=== PATIENT | female | born 1995 | race African-American/Black ===

== ENCOUNTER 2021-01-24 15:36 | Emergency (ER) | payer MEDICAID ==
[~2021-01-24] VITALS: Ht 162.6 cm; Wt 54.5 kg
[2021-01-24 16:21] VITALS: BP 131/79
[2021-01-24] MEDS ORDERED: ACETAMINOPHEN 325 MG TABLET PO ONE (16:30)
== END 2021-01-24 17:13 | disposition home or self-care (01) ==
LOC: EMS 15:36
DX: S46.811A Strain of other muscles, fascia and tendons at shoulder and upper arm level, right arm, initial encounter (principal); Y08.89XA Assault by other specified means, initial encounter; Y93.89 Activity, other specified; Y92.89 Other specified places as the place of occurrence of the external cause; Y99.8 Other external cause status
CPT/HCPCS: 99283

== ENCOUNTER 2023-02-16 05:38 | Inpatient (IN) | payer MEDICAID ==
[~2023-02-16] VITALS: Ht 152.4 cm; Wt 55.0 kg
[2023-02-16 07:48] LABS: BASOPHILS % (AUTO) 1.2 % (0.0-2.0); EOSINOPHILS % (AUTO) 1.1 % (1.0-6.0); HEMATOCRIT 29.5 % (36-46); HEMOGLOBIN 9.5 g/dL (12.0-16.0); LYMPHOCYTES # (AUTO) 2.7 K/uL (1.0-4.8); MEAN CORPUSCULAR HEMOGLOBIN 28.1 pg (26.0-34.0); MEAN CORPUSCULAR HGB CONC 32.2 G/dL (31.0-37.0); MEAN CORPUSCULAR VOLUME 87 fL (80-100); MONOCYTES # (AUTO) 0.5 K/uL (0.1-1.0); MONOCYTES % (AUTO) 8.1 % (2.0-9.0); NEUTROPHILS # (AUTO) 2.4 K/uL (1.8-7.7); NEUTROPHILS % (AUTO) 42.6 % (40.0-70.0); PLATELET COUNT (AUTO) 294 K/uL (150-450); RED BLOOD CELL COUNT(AUTO) 3.38 MIL/uL (4.00-5.20); RED CELL DISTRIBUTION WIDTH 16.6 % (11.5-14.5)
[2023-02-16] MEDS ORDERED: HALOPERIDOL LACTATE 5 MG/ML VIAL IM ONE (08:00)
[2023-02-16] MEDS ORDERED: LORazepam 2 MG/ML VIAL IM ONE (08:00)
[2023-02-16] MEDS ORDERED: DiphenhydrAMINE HCL 50 MG/ML VIAL IM ONE (08:00)
[2023-02-16 08:05] LABS: ANION GAP 11 mmol/L (8-16); CALCIUM, TOTAL 8.3 mg/dL (8.8-10.5); CARBON DIOXIDE 22 mmol/L (22-29); CHLORIDE 107 mmol/L (98-107); CREATININE 0.78 mg/dL (0.60-1.30); GLOMERULAR FILTR. RATE CALC > 60 mL/min (>60); GLUCOSE,RANDOM 88 mg/dL (70-110); POTASSIUM 3.4 mmol/L (3.5-5.1); SODIUM SERUM 140 mmol/L (136-145)
[2023-02-16 08:10] LABS: ALANINE AMINOTRANSFERASE 24 U/L (12-78); ALBUMIN 3.6 g/dL (3.4-5.0); ALKALINE PHOSPHATASE 40 U/L (46-116); ASPARTATE AMINOTRANSFERASE 36 U/L (15-37); BILIRUBIN,TOTAL 0.3 mg/dL (0.1-1.0)
[2023-02-16] MEDS ORDERED: ZOLPIDEM TARTRATE 10 MG TABLET PO PRN (09:45)
[2023-02-16 14:21] LABS: COVID AG,FIA SOURCE NASAL SWAB
[2023-02-16 18:53] VITALS: BP 113/51; PULSE 57; RESP 18; TEMP 98.4; O2SAT 100
[2023-02-16 21:16] VITALS: BP 104/56; PULSE 60; RESP 17; TEMP 97.2; O2SAT 98
[2023-02-17] MEDS ORDERED: BENZOCAINE/MENTHOL LOZENGE PO PRN (08:30)
[2023-02-17] MEDS ORDERED: DOCUSATE SODIUM 100 MG CAPSULE PO PRN (08:30)
[2023-02-17] MEDS ORDERED: ONDANSETRON HCL 4 MG TABLET PO PRN (08:30)
[2023-02-17] MEDS ORDERED: PETROLATUM,WHITE 28 GM JELLY TP PRN (08:30)
[2023-02-17] MEDS ORDERED: ALBUTEROL SULFATE HFA 90 MCG/PUFF 8 GM INHALER IH PRN (08:30)
[2023-02-17] MEDS ORDERED: MAGNESIUM HYDROXIDE SUSPENSION 30 ML UDCUP PO PRN (08:30)
[2023-02-17] MEDS ORDERED: CloNIDine HCL 0.1 MG TABLET PO PRN (08:30)
[2023-02-17] MEDS ORDERED: LOPERAMIDE HCL 2 MG CAPSULE PO PRN (08:30)
[2023-02-17] MEDS ORDERED: ACETAMINOPHEN 325 MG TABLET PO PRN (08:30)
[2023-02-17] MEDS ORDERED: OMEPRAZOLE 20 MG CAPSULE PO PRN (08:30)
[2023-02-17] MEDS ORDERED: MAG HYDROX/AL HYDROX/SIMETH ES 30 ML SUSPENSION UDCUP PO PRN (08:30)
[2023-02-17] MEDS ORDERED: POTASSIUM CHLORIDE 20 MEQ ER TABLET PO ONE (08:30)
[2023-02-17] MEDS ORDERED: BACITRACIN 28 GM OINTMENT TP PRN (08:30)
[2023-02-17 09:40] VITALS: BP 106/60; PULSE 60; RESP 20; TEMP 98.5; O2SAT 96
[2023-02-17] MEDS: HALOPERIDOL 5 MG TABLET PO PRN (12:55)
[2023-02-17] MEDS: LORazepam 2 MG TABLET PO PRN ×2 (12:55→20:26)
[2023-02-17] MEDS: QUEtiapine FUMARATE 300 MG TABLET PO SCH (20:26)
[2023-02-17 20:35] VITALS: BP 119/65; PULSE 95; RESP 18; TEMP 97.6; O2SAT 98
[2023-02-18 09:51] VITALS: BP 118/68; PULSE 80; RESP 18; TEMP 98; O2SAT 99
[2023-02-18] MEDS: LORazepam 2 MG TABLET PO PRN ×2 (14:00→20:11)
[2023-02-18] MEDS: HALOPERIDOL 5 MG TABLET PO PRN (14:00)
[2023-02-18] MEDS: QUEtiapine FUMARATE 300 MG TABLET PO SCH (20:10)
[2023-02-19 02:17] VITALS: BP 136/84; PULSE 96; RESP 18; TEMP 97.4
[2023-02-19] MEDS: LORazepam 2 MG TABLET PO PRN ×2 (08:32→14:36)
[2023-02-19 08:38] VITALS: BP 116/72; PULSE 94; RESP 16; TEMP 97.6; O2SAT 99
[2023-02-19] MEDS: HALOPERIDOL 5 MG TABLET PO PRN (15:48)
[2023-02-19 20:07] VITALS: BP 112/63; PULSE 98; RESP 18; TEMP 97.5; O2SAT 96
[2023-02-19] MEDS: QUEtiapine FUMARATE 300 MG TABLET PO SCH (20:29)
[2023-02-19] MEDS ORDERED: QUEtiapine FUMARATE 300 MG TABLET PO SCH (21:00)
[2023-02-20] VITALS: BP 111/65; PULSE 99; RESP 18; TEMP 97.6; O2SAT 100
[2023-02-20] MEDS: LORazepam 2 MG TABLET PO PRN ×2 (00:02→08:13)
[2023-02-20] MEDS: HALOPERIDOL 5 MG TABLET PO PRN (08:13)
[2023-02-20 08:24] VITALS: BP 112/79; PULSE 96; RESP 16; TEMP 97.9; O2SAT 99
[2023-02-20 20:08] VITALS: BP 109/68; PULSE 83; RESP 18; TEMP 97.5; O2SAT 96
[2023-02-20] MEDS: QUEtiapine FUMARATE 300 MG TABLET PO SCH (20:30)
[2023-02-21] MEDS ORDERED: LORazepam 2 MG/ML VIAL IM ONE (06:45)
[2023-02-21] MEDS ORDERED: DiphenhydrAMINE HCL 50 MG/ML VIAL IM ONE (06:45)
[2023-02-21] MEDS ORDERED: HALOPERIDOL LACTATE 5 MG/ML VIAL IM ONE (06:45)
[2023-02-21 08:27] VITALS: RESP 16
[2023-02-21] MEDS: HALOPERIDOL 5 MG TABLET PO PRN ×2 (08:36→16:06)
[2023-02-21] MEDS: IBUPROFEN 600 MG TABLET PO PRN (08:36)
[2023-02-21] MEDS: LORazepam 2 MG TABLET PO PRN ×3 (08:36→20:16)
[2023-02-21] MEDS: QUEtiapine FUMARATE 300 MG TABLET PO SCH (20:16)
[2023-02-21 20:29] VITALS: BP 115/72; PULSE 98; RESP 17; TEMP 98; O2SAT 98
[2023-02-22] MEDS: HALOPERIDOL 5 MG TABLET PO PRN ×3 (04:19→16:16)
[2023-02-22] MEDS: LORazepam 2 MG TABLET PO PRN ×3 (04:19→16:16)
[2023-02-22 08:33] VITALS: RESP 18
[2023-02-22 20:13] VITALS: BP 109/65; PULSE 73; RESP 19; TEMP 98.3; O2SAT 99
[2023-02-22] MEDS: QUEtiapine FUMARATE 300 MG TABLET PO SCH (20:34)
[2023-02-23] MEDS ORDERED: LORazepam 2 MG/ML VIAL ONE (02:29)
[2023-02-23] MEDS ORDERED: HALOPERIDOL LACTATE 5 MG/ML VIAL IM ONE (02:30)
[2023-02-23] MEDS ORDERED: DiphenhydrAMINE HCL 50 MG/ML VIAL ONE (02:30)
[2023-02-23] MEDS ORDERED: LORazepam 2 MG/ML VIAL IM ONE (02:30)
[2023-02-23] MEDS ORDERED: HALOPERIDOL LACTATE 5 MG/ML VIAL ONE (02:30)
[2023-02-23] MEDS ORDERED: DiphenhydrAMINE HCL 50 MG/ML VIAL IM ONE (02:30)
[2023-02-23 08:23] VITALS: BP 115/62; PULSE 111; RESP 17; TEMP 98.1; O2SAT 98
[2023-02-23] MEDS: LORazepam 2 MG TABLET PO PRN (09:11)
[2023-02-23] MEDS: HALOPERIDOL 5 MG TABLET PO PRN (09:11)
[2023-02-23] MEDS: IBUPROFEN 600 MG TABLET PO PRN (11:54)
[2023-02-23] MEDS ORDERED: QUET300T2 PO (15:48)
== END 2023-02-23 19:38 | disposition home or self-care (01) | DRG 750 ==
LOC: EMS 05:39 → B3A 15:41
PROVIDERS: ADMIT Psychiatry & Neurology Psychiatry; ATTEND Psychiatry & Neurology Psychiatry
DX: F25.9 Schizoaffective disorder, unspecified (principal); R45.850 Homicidal ideations; F41.9 Anxiety disorder, unspecified; G47.00 Insomnia, unspecified; I10 Essential (primary) hypertension; K59.00 Constipation, unspecified; F10.90 Alcohol use, unspecified, uncomplicated; Y90.9 Presence of alcohol in blood, level not specified; J45.909 Unspecified asthma, uncomplicated; Z20.822 Contact with and (suspected) exposure to COVID-19; Z78.1 Physical restraint status; Z72.0 Tobacco use; Z71.6 Tobacco abuse counseling
CPT/HCPCS: 80053; 84132; 85025; 99285; G0480; J1200; J1630; J2060; 36415-L1; 36415-TC; Z7502; Z7610

== ENCOUNTER 2024-01-28 11:12 | Inpatient (IN) | payer MEDICAID ==
[~2024-01-28] VITALS: Ht 167.6 cm; Wt 64.0 kg
[~2024-01-28 11:12] MED LIST: QUET300T2 PO
[2024-01-28] MEDS: LORazepam 2 MG/ML VIAL IM ONE (12:49)
[2024-01-28] MEDS: HALOPERIDOL LACTATE 5 MG/ML VIAL IM ONE (12:49)
[2024-01-28] MEDS: DiphenhydrAMINE HCL 50 MG/ML VIAL IM ONE (12:49)
[2024-01-28] MEDS ORDERED: LORazepam 2 MG TABLET PO PRN (13:30)
[2024-01-28] MEDS ORDERED: ZOLPIDEM TARTRATE 10 MG TABLET PO PRN (13:30)
[2024-01-28] MEDS ORDERED: RisperiDONE 2 MG TABLET PO PRN (13:30)
[2024-01-28] MEDS ORDERED: QUEtiapine FUMARATE 100 MG TABLET PO PRN (13:30)
[2024-01-28 13:34] LABS: BASOPHILS % (AUTO) 0.8 % (0.0-2.0); EOSINOPHILS % (AUTO) 0.5 % (1.0-6.0); HEMATOCRIT 34.2 % (36-46); HEMOGLOBIN 11.6 g/dL (12.0-16.0); LYMPHOCYTES # (AUTO) 1.8 K/uL (1.0-4.8); LYMPHOCYTES % (AUTO) 31.9 % (22.0-44.0); MEAN CORPUSCULAR HEMOGLOBIN 32.1 pg (26.0-34.0); MEAN CORPUSCULAR HGB CONC 33.8 G/dL (31.0-37.0); MEAN CORPUSCULAR VOLUME 95 fL (80-100); MONOCYTES # (AUTO) 0.5 K/uL (0.1-1.0); NEUTROPHILS # (AUTO) 3.2 K/uL (1.8-7.7); NEUTROPHILS % (AUTO) 57.8 % (40.0-70.0); PLATELET COUNT (AUTO) 321 K/uL (150-450); RED BLOOD CELL COUNT(AUTO) 3.61 MIL/uL (4.00-5.20); RED CELL DISTRIBUTION WIDTH 13.5 % (11.5-14.5); WHITE BLOOD COUNT (AUTO) 5.5 K/uL (4.5-11.0)
[2024-01-28] MEDS: RisperiDONE 1 MG TABLET PO ONE (13:45)
[2024-01-28 13:49] LABS: ANION GAP 9 mmol/L (8-16); CALCIUM, TOTAL 8.5 mg/dL (8.8-10.5); CARBON DIOXIDE 26 mmol/L (22-29); CHLORIDE 105 mmol/L (98-107); CREATININE 0.72 mg/dL (0.60-1.30); GLOMERULAR FILTR. RATE CALC > 60 mL/min (>60); GLUCOSE,RANDOM 112 mg/dL (70-110); POTASSIUM 3.2 mmol/L (3.5-5.1); SODIUM SERUM 139 mmol/L (136-145); UREA NITROGEN, BLOOD 5 mg/dL (7-18)
[2024-01-28 13:55] LABS: ALCOHOL, BLOOD (SERUM) < 3 mg/dL (0-10)
[2024-01-28] MEDS: POTASSIUM CHLORIDE 20 MEQ ER TABLET PO ONE (14:00)
[2024-01-28 14:30] LABS: COVID AG,FIA SOURCE NASAL SWAB
[2024-01-28 14:52] LABS: SARS-COV2 (COVID) ANTIGEN,FIA Negative (Negative)
[2024-01-28 16:55] VITALS: BP 110/63; PULSE 67; RESP 15; TEMP 96.4; O2SAT 98
[2024-01-28] MEDS: DIVALPROEX SODIUM 250 MG ER TABLET PO SCH (20:26)
[2024-01-28] MEDS: MELATONIN 5 MG TABLET PO SCH (20:26)
[2024-01-28] MEDS: QUEtiapine FUMARATE 200 MG TABLET PO SCH (20:26)
[2024-01-28 22:48] VITALS: BP 115/78; PULSE 72; RESP 16; TEMP 97.8; O2SAT 98
[2024-01-29] MEDS: POTASSIUM CHLORIDE 20 MEQ ER TABLET PO ONE (12:48)
[2024-01-29 15:22] VITALS: RESP 16
[2024-01-29] MEDS ORDERED: ACETAMINOPHEN 325 MG TABLET PO PRN (16:45)
[2024-01-29] MEDS ORDERED: PROMETHAZINE HCL 25 MG TABLET PO PRN (16:45)
[2024-01-29] MEDS ORDERED: GuaiFENesin/D-METHORPHAN [SUGAR-FREE] 200-20MG/10 ML SYRUP UDCUP PO PRN (16:45)
[2024-01-29] MEDS ORDERED: MAGNESIUM HYDROXIDE SUSPENSION 30 ML UDCUP PO PRN (16:45)
[2024-01-29] MEDS ORDERED: MAG HYDROX/ALUMINUM HYD/SIMETH ES 30 ML SUSPENSION UDCUP PO PRN (16:45)
[2024-01-29] MEDS ORDERED: HydrOXYzine PAMOATE 50 MG CAPSULE PO PRN (16:45)
[2024-01-29] MEDS ORDERED: TUBERCULIN, PURIFIED PROTEIN DERIVATIVE 5 TU/0.1 ML SYRINGE ID ONE (16:45)
[2024-01-29] MEDS ORDERED: LOPERAMIDE HCL 2 MG CAPSULE PO PRN (16:45)
[2024-01-29] MEDS: THIAMINE 100 MG TABLET PO SCH (17:06)
[2024-01-29 20:39] VITALS: BP 118/73; PULSE 83; RESP 18; TEMP 97.1; O2SAT 95
[2024-01-30 08:27] LABS: HEMOGLOBIN A1C 5.3 % (3.8-5.6)
[2024-01-30] MEDS: FOLIC ACID 1 MG TABLET PO SCH (08:28)
[2024-01-30] MEDS: MULTIVITAMINS WITH MINERALS, THERAPEUTIC TABLET PO SCH (08:28)
[2024-01-30 08:45] LABS: CHOL/HDL RATIO 2.5 (3.9-5.7); FREE T4 (FREE THYROXINE) 1.02 ng/dL (0.76-1.46); THYROID STIMULATING HORMONE 0.63 uIU/mL (0.36-3.74)
[2024-01-30 10:11] VITALS: BP 135/78; PULSE 86; RESP 17; TEMP 98; O2SAT 96
[2024-01-30] MEDS: QUEtiapine FUMARATE 200 MG TABLET PO SCH (20:04)
[2024-01-30 20:29] VITALS: BP 120/78; PULSE 96; RESP 18; TEMP 97.4; O2SAT 96
[2024-01-31 08:15] VITALS: BP 112/60; PULSE 75; RESP 18; TEMP 98; O2SAT 98
[2024-01-31 08:39] LABS: ANION GAP 10 mmol/L (8-16); CALCIUM, TOTAL 8.9 mg/dL (8.8-10.5); CARBON DIOXIDE 27 mmol/L (22-29); CHLORIDE 101 mmol/L (98-107); GLOMERULAR FILTR. RATE CALC > 60 mL/min (>60); GLUCOSE,RANDOM 107 mg/dL (70-110); SODIUM SERUM 138 mmol/L (136-145); UREA NITROGEN, BLOOD 8 mg/dL (7-18)
[2024-01-31 20:17] VITALS: BP 110/69; PULSE 78; RESP 19; TEMP 96.3; O2SAT 98
[2024-02-01 08:19] VITALS: BP 106/60; PULSE 75; RESP 16; TEMP 97.7; O2SAT 98
[2024-02-01 20:00] VITALS: BP_SYST 104; PULSE 100; RESP 16; TEMP 97.5; O2SAT 97
[2024-02-02 08:12] VITALS: BP 118/60; PULSE 91; RESP 16; TEMP 97.7; O2SAT 99
[2024-02-02 20:21] VITALS: BP 96/62; PULSE 82; RESP 16; TEMP 98.7; O2SAT 98
[2024-02-03 08:14] VITALS: BP 122/60; PULSE 80; RESP 16; TEMP 97.7; O2SAT 16
[2024-02-03] MEDS ORDERED: QUET200T PO (10:41)
[2024-02-03] MEDS ORDERED: DIVA-85 PO (10:41)
[2024-02-03] MEDS ORDERED: PNEUMOCOCCAL VACCINE POLYVALENT 0.5 ML SYRINGE [PPSV23] IM. ONE (12:15)
== END 2024-02-03 12:16 | disposition home or self-care (01) | DRG 750 ==
LOC: EMS 11:12 → B3A 17:44
PROVIDERS: ADMIT Psychiatry & Neurology Psychiatry; ATTEND Psychiatry & Neurology Psychiatry
PROC: GZHZZZZ Group Psychotherapy (ICD-10-PCS; principal; 2024-01-29)
PROC: GZ51ZZZ Individual Psychotherapy, Behavioral (ICD-10-PCS; 2024-01-29)
DX: F25.0 Schizoaffective disorder, bipolar type (principal); Z91.148 Patient's other noncompliance with medication regimen for other reason; D64.9 Anemia, unspecified; E87.6 Hypokalemia; F41.9 Anxiety disorder, unspecified; Z20.822 Contact with and (suspected) exposure to COVID-19; J45.909 Unspecified asthma, uncomplicated; K59.00 Constipation, unspecified; G47.00 Insomnia, unspecified; Z59.00 Homelessness unspecified
CPT/HCPCS: 80048; 80061; 83036; 84439; 84443; 84703; 85025; 86592; 99291; G0480; J1200; J1630; J2060